=== PATIENT | male | born 1980 | race Caucasian/White ===

== ENCOUNTER 2018-08-29 00:38 | Inpatient (IN) | payer BC ==
[~2018-08-29] VITALS: Ht 175.3 cm; Wt 75.7 kg
--- NOTE | 2018-08-29 00:50 | NUR ---
PT PRESENTED TO THE ER WITH A C/O N/V X 2 DAYS. PT APPEARS PALE AND ANXIOUS. PT AMBULATED TO ER #4 WITH A SLOW STEADY GAIT. PT'S FRIEND IS AT THE BEDSIDE. PT WAS PLACED ON THE MONITOR AND CONTINUOUS PULSE OX. IV STARTED AND BLOOD WAS DRAWN.
[2018-08-29] MEDS ORDERED: ONDANSETRON HCL/PF 4 MG/2 ML VIAL ONE ×2 (00:56→01:34)
--- NOTE | 2018-08-29 00:57 | NUR ---
PT RETURNED FROM CT.
[2018-08-29 01:00] LABS: BASOPHILS # (AUTO) 0.1 /CMM (0.0-0.2); BASOPHILS % (AUTO) 0.3 % (0.0-2.0); HEMATOCRIT 52 % (39-51); HEMOGLOBIN 17.7 g/dL (13.5-17.5); LYMPHOCYTES # (AUTO) 2.1 /CMM (0.8-4.8); LYMPHOCYTES % (AUTO) 11.6 % (20.0-44.0); MEAN CORPUSCULAR HGB CONC 34 g/dl (31.0-36.0); MEAN CORPUSCULAR VOLUME 86 fL (80-96); MONOCYTES # (AUTO) 1.6 /CMM (0.1-1.30); NEUTROPHILS # (AUTO) 14.2 /CMM (1.8-8.9); NEUTROPHILS % (AUTO) 79.1 % (43.0-81.0); PLATELET COUNT (AUTO) 385 /CMM (150-450); WHITE BLOOD COUNT (AUTO) 17.9 K/uL (4.3-11.0)
[2018-08-29] MEDS ORDERED: ONDANSETRON HCL/PF 4 MG/2 ML VIAL IVP ONE (01:00)
[2018-08-29] MEDS ORDERED: IV NS 0.9% 1,000 ML BAG IV ONE (01:00)
[2018-08-29 01:16] LABS: ALBUMIN 4.9 g/dL (3.4-5.0); BILIRUBIN,DIRECT 0.1 mg/dL (0.0-0.2); BILIRUBIN,TOTAL 0.8 mg/dL (0.2-1.0); CALCIUM, SERUM 9.4 mg/dL (8.5-10.1); POTASSIUM 3.9 mmol/L (3.5-5.1); TOTAL PROTEIN, SERUM 9.4 g/dL (6.4-8.2)
[2018-08-29] MEDS ORDERED: LORAZEPAM INJ 2 MG/ML VIAL ONE (01:57)
[2018-08-29] MEDS ORDERED: LORAZEPAM INJ 2 MG/ML VIAL IV ONE (02:00)
[2018-08-29] MEDS ORDERED: ONDANSETRON HCL/PF 4 MG/2 ML VIAL IV ONE (02:00)
--- NOTE | 2018-08-29 02:05 | NUR ---
DARIANA MENARD, IS AT THE BEDSIDE.
--- NOTE | 2018-08-29 02:10 | NUR ---
REPORT GIVEN TO SARAH ANDINO
[2018-08-29 02:17] LABS: APPEARANCE,URINE CLEAR (CLEAR); BILIRUBIN,URINE 3+ (NEGATIVE); BLOOD, URINE TRACE-INTA Ery/uL (NEGATIVE); COLOR,URINE YELLOW (YELLOW); KETONES,URINE 2+ (NEGATIVE); LEUKOCYTE ESTERASE ,URINE NEGATIVE (NEGATIVE); NITRITE, URINE NEGATIVE (NEGATIVE); PROTEIN,URINE 1+ mg/dl (NEGATIVE); UGLUCOSE NEGATIVE (NEGATIVE); UROBILINOGEN,URINE 0.2 EU/dL (0.2)
[2018-08-29 02:22] LABS: BACTERIA,URINE Few /HPF (None Seen)
[2018-08-29 02:23] LABS: SQUAMOUS EPITHELIAL CELL,UR Few /HPF (None Seen)
--- NOTE | 2018-08-29 02:28 | NUR ---
US TECH IS FINISHED.
[2018-08-29] MEDS ORDERED: Z GUARD REMEDY 2 OZ OINT TP PRN (02:30)
[2018-08-29] MEDS ORDERED: ACETAMINOPHEN 325 MG TABLET PO PRN (02:30)
[2018-08-29] MEDS ORDERED: MAG HYDROX/AL HYDROX/SIMETH 30 ML UDC PO PRN (02:30)
[2018-08-29] MEDS ORDERED: MORPHINE SULFATE INJ 2 MG/ML DISP.SYRIN IV PRN (02:30)
[2018-08-29] MEDS ORDERED: MAGNESIUM HYDROXIDE 30 ML UDC PO PRN (02:30)
[2018-08-29] MEDS ORDERED: HYDROCODONE/APAP 5/325MG 1 EACH TABLET PO PRN (02:30)
[2018-08-29] MEDS ORDERED: ONDANSETRON HCL/PF 4 MG/2 ML VIAL IVP PRN (02:30)
--- NOTE | 2018-08-29 02:35 | NUR ---
PT IS GOING TO [facility] .
[2018-08-29 02:45] VITALS: BP 129/71
--- NOTE | 2018-08-29 02:45 | NUR ---
MS/RN NOTE RECEIVED NEW ADMITTED PATIENT IS A 38 YEEAR OLD MALE WHO WAS ADMITTED FROM ER DUE TO N/V FOR 3 DAYS WITH HICUPS. US ULTRASOUND DX WITH PANCREATITIS, ALERT, ORIENTED ABLE TO VERBALIZE NEEDS, CALM AND COOPERATIVE TO CARE, ON NPO, LAST BM 2DAYS AGO, LEFT AC GAUGE 20 PATENT, BELONGINGS CHECK AND RECONCILED, ON IV HYDRATION AT 150 ML/HR. ROOM ORIENTATION PROVIDED, WILL MONITOR, NO HOME MEDICATION AND WITH STRICT I/O.
--- NOTE | 2018-08-29 02:46 | NUR ---
SKIN ASSESSMENT DONE . SKIN INTACT.
[2018-08-29] MEDS: IV NS 0.9% 1,000 ML IV PRN ×4 (03:05→23:11)
[2018-08-29 03:08] VITALS: BP 129/71
--- NOTE | 2018-08-29 06:27 | NUR ---
315-2 MS/RN NOTES PATIENT ABLE TO SLEEP DURING THE NIGHT, ALERT, ORIENTED, VERBALIZE PAIN COMES AND GOES WITH HICCUPS, NO PAIN MEDICATION REQUESTED, ABLE TO TOLERATE, NOP STATUS. IV HYDRATION RUNNING AT 150ML/HR HELP.SKIN WARM TO TOUCH. RESPIRATIONS EVEN AND UNLABORED. BED LOCKED, CALL LIGHTS WITHIN REACH. WILL MONITOR.
[2018-08-29 06:40] LABS: BASOPHILS % (AUTO) 0.1 % (0.0-2.0); HEMATOCRIT 49 % (39-51); HEMOGLOBIN 16.1 g/dL (13.5-17.5); LYMPHOCYTES % (AUTO) 13.8 % (20.0-44.0); MEAN CORPUSCULAR HGB CONC 33 g/dl (31.0-36.0); MEAN CORPUSCULAR VOLUME 87 fL (80-96); MONOCYTES # (AUTO) 1.5 /CMM (0.1-1.30); MONOCYTES % (AUTO) 10.1 % (2.0-12.0); NEUTROPHILS # (AUTO) 11.2 /CMM (1.8-8.9); PLATELET COUNT (AUTO) 326 /CMM (150-450); RED BLOOD CELL COUNT(AUTO) 5.61 MIL/uL (4.5-6.0); WHITE BLOOD COUNT (AUTO) 14.8 K/uL (4.3-11.0)
[2018-08-29 06:59] LABS: ALBUMIN 4.1 g/dL (3.4-5.0); BILIRUBIN,TOTAL 0.8 mg/dL (0.2-1.0); CALCIUM, SERUM 8.5 mg/dL (8.5-10.1); CREATININE 2.2 mg/dL (0.6-1.3); MAGNESIUM 2.2 mg/dL (1.8-2.4); PHOSPHORUS 4.4 mg/dL (2.5-4.9); POTASSIUM 4.1 mmol/L (3.5-5.1); TOTAL PROTEIN, SERUM 8.1 g/dL (6.4-8.2)
[2018-08-29 07:09] LABS: THYROID STIMULATING HORMONE 1.312 uIU/mL (0.358-3.74)
--- NOTE | 2018-08-29 07:30 | NUR ---
MS RN OPENING NOTES PT ALERT, ORIENTED X4. , NO PAIN AT THIS TIME. NPO STATUS. IV HYDRATION RUNNING AT 150ML/HR SKIN WARM TO TOUCH. RESPIRATIONS EVEN AND UNLABORED. BED LOCKED, CALL LIGHTS WITHIN REACH. WILL CONTINUE TO MONITOR
[2018-08-29 08:00] VITALS: BP 133/82
[2018-08-29] MEDS: PANTOPRAZOLE 40 MG VIAL IV SCH (08:57)
[2018-08-29 12:26] LABS: CREATININE, URINE 223.7 MG/DL (30.0-125.0); URINE TOTAL PROTEIN 91.9 mg/dL (0-11.9)
[2018-08-29 16:00] VITALS: BP 126/72
--- NOTE | 2018-08-29 18:34 | NUR ---
MS RN CLOSING NOTES PT ALERT, ORIENTED X4.DIET ADVANCED TO CLEAR LIQUID, PT TOLERATED WELL. NO N/V OR DIARRHEA NOTED.IV HYDRATION RUNNING AT 150ML/HR .SKIN WARM TO TOUCH. RESPIRATIONS EVEN AND UNLABORED. BED LOCKED, CALL LIGHTS WITHIN REACH.WILL ENDORSE TO NEXT SHIFT
[2018-08-29 20:00] VITALS: BP 120/64
--- NOTE | 2018-08-29 20:20 | NUR ---
MS/RN OPENING NOTES RECEIVED PATIENT IN BED, AWAKE, RESTING COMFORTABLY IN BED, DENIES PAIN, ABLE TO TOLERATE LIQUID DIET, RESPIRATIONS EVEN AND UNLABORED, REPORTED FEEL MUCH BETTER, REVIEWED PLAN OF CARE, WILL CONTINUE TO MONITOR. WILL MONITOR, CALL LIGHTS WITHIN REACH, BED LOCKED WILL MONITOR.
[2018-08-30] MEDS: IV NS 0.9% 1,000 ML IV PRN (05:59)
--- NOTE | 2018-08-30 06:14 | NUR ---
MS SARAH NOTES PATIENT SELF CARE AND TOOK A SHOWER, REQUESTED TO HAVE DOUBLE PORTION IN HIS MEAL PLAN INFORM MED DOLAN, ALSO REQUESTING TO SMOKE Addendum: 08/30/18 at 0616 by CHARLENE MAYORGA RN PLS DISREGARD FOR ANOTHER PATIENT INFO
[2018-08-30 06:27] LABS: BASOPHILS % (AUTO) 0.4 % (0.0-2.0); EOSINOPHILS % (AUTO) 0.7 % (0.0-6.0); HEMATOCRIT 44 % (39-51); HEMOGLOBIN 14.6 g/dL (13.5-17.5); LYMPHOCYTES # (AUTO) 2.2 /CMM (0.8-4.8); MEAN CORPUSCULAR HGB CONC 34 g/dl (31.0-36.0); MEAN CORPUSCULAR VOLUME 87 fL (80-96); MONOCYTES # (AUTO) 1.1 /CMM (0.1-1.30); MONOCYTES % (AUTO) 10.7 % (2.0-12.0); NEUTROPHILS # (AUTO) 6.6 /CMM (1.8-8.9); NEUTROPHILS % (AUTO) 66.2 % (43.0-81.0); PLATELET COUNT (AUTO) 273 /CMM (150-450); RED BLOOD CELL COUNT(AUTO) 5.01 MIL/uL (4.5-6.0); WHITE BLOOD COUNT (AUTO) 10.1 K/uL (4.3-11.0)
--- NOTE | 2018-08-30 06:29 | NUR ---
MS/RN NOTES DISCUSSED PATIENT ABOUT DIET ORDER TO ADVANCE TOLERATED TO SOFT DIET, WITH NO BOWEL MOVEMENT FOR THE PAST 3 DAYS, INFORMED NEEDED MILK OF MAGNESIA, REFUSE TO TAKE IT AT THIS TIME BUT WILL HAVE SOME FOOD SO MAY HAVE BM.
--- NOTE | 2018-08-30 06:33 | NUR ---
315-2 MS/RN NOTES PATIENT ALERT, ORIENTED, IN BED, WITH IMPROVED CONDITION. DISCUSSED DIET TOLERATED, AND PLAN OF CARE, DENIES PAIN. SLEPT GOOD. CALL LIGHTS WITHIN REACH, BED LOCKED, WILL MONITOR.WILL ENDORSE TO AM RN FOR BEKAH.
[2018-08-30 06:41] LABS: ALBUMIN 3.3 g/dL (3.4-5.0); BILIRUBIN,TOTAL 1.1 mg/dL (0.2-1.0); CALCIUM, SERUM 8.3 mg/dL (8.5-10.1); CREATININE 1.1 mg/dL (0.6-1.3); POTASSIUM 3.8 mmol/L (3.5-5.1); TOTAL PROTEIN, SERUM 6.5 g/dL (6.4-8.2)
--- NOTE | 2018-08-30 07:30 | NUR ---
RN OPENING NOTES RECEIVED PT. PT STABLE AND RESTING IN BED. A/OX3. NO S/S OF RESP DISTRESS/SOB. NO C/O PAIN AT THIS TIME. PER AM LABS, LIPASE TREND DOWNWARDS NOW WNL. PT DIET ADVANCED FROM CLEAR LIQUIDS TO SOFT, ABLE TO TOLERATE. SAFETY MEASURES IN PLACE, CALL LIGHT WITHIN REACH. WILL CONTINUE TO MONITOR.
[2018-08-30 08:00] VITALS: BP 122/63
[2018-08-30] MEDS: PANTOPRAZOLE 40 MG VIAL IV SCH (09:03)
[2018-08-30] MEDS ORDERED: K PHOS NEUTRAL 250 MG TABLET PO ONE (12:30)
--- NOTE | 2018-08-30 15:51 | NUR ---
DISCHARGE NOTE PT DISCHARGED HOME. PT STABLE. NO C/O PAIN. DC TEACHING PERFORMED. PT VERBALIZES UNDERSTANDING OF TEACHING. MRCP SCAN RESULTS FOUND MOST UNREMARKABLE, REPORT GIVEN TO PT. ID AND IV ACCESS REMOVED. DC INSTRUCTIONS AND BELONGINGS SHEETS SIGNED, COPIED AND PLACED IN CHART. PT LEFT HOSPITAL IN PRIVATE VEHICLE WITH FRIEND.
[2018-08-31 08:11] LABS: *SPE A/G RATIO 1.4 (0.7-1.7); *SPE ALBUMIN 3.6 g/dL (2.9-4.4); *SPE ALPHA-1-GLOBULIN 0.2 g/dL (0.0-0.4); *SPE ALPHA-2-GLOBULIN 0.5 g/dL (0.4-1.0); *SPE BETA GLOBULIN 1.1 g/dL (0.7-1.3); *SPE GLOBULIN, TOTAL 2.6 g/dL (2.2-3.9); *SPE M-SPIKE Not Observed g/dL (Not Observed); *SPEGAMMA GLOBULIN 0.9 g/dL (0.4-1.8)
[2018-08-31 12:09] LABS: PTH, INTACT 22 pg/mL (15-65)
== END 2018-08-30 15:40 | disposition home or self-care (01) | DRG 438 ==
LOC: ER 00:39 → MED 01:49
PROVIDERS: ADMIT Nurse Practitioner Acute Care; ATTEND Nurse Practitioner Acute Care
DX: K85.90 Acute pancreatitis without necrosis or infection, unspecified (principal); N17.0 Acute kidney failure with tubular necrosis; E87.2 Acidosis; E87.1 Hypo-osmolality and hyponatremia; K80.20 Calculus of gallbladder without cholecystitis without obstruction; Z87.891 Personal history of nicotine dependence; D72.829 Elevated white blood cell count, unspecified; E87.8 Other disorders of electrolyte and fluid balance, not elsewhere classified; A08.4 Viral intestinal infection, unspecified
CPT/HCPCS: 36415; 74181-TC; 76705-TC; 76770-TC; 80048-TC; 80053-TC; 80061-TC; 80076-TC; 81000-TC; 82550-TC; 82570-TC; 83690-TC; 83735-TC; 83970; 84100-TC; 84155; 84155-TC; 84165; 84300-TC; 84443-TC; 85025-TC; 87081-TC; A4606; C9113; G0378; J2060; J2405; J7030; Z7610

== ENCOUNTER 2018-11-06 12:18 | Emergency (ER) | payer BC ==
[~2018-11-06] VITALS: Ht 170.2 cm; Wt 70.3 kg
--- NOTE | 2018-11-06 12:29 | NUR ---
patient presented to the ER c/o nausea and vominting x 10 since this morning. On room air, breathing evenly and unlabroed. kept comfortable. awaiting for MD for eval. Will continue to monitor accordingly.
--- NOTE | 2018-11-06 12:38 | NUR ---
LABS DRAWNED AND SENT TO LAB.
[2018-11-06] MEDS ORDERED: ONDANSETRON HCL/PF 4 MG/2 ML VIAL ONE (12:49)
--- NOTE | 2018-11-06 12:56 | NUR ---
SEEN AND EXAMINED BY MS. ISSAC RIVAS.
[2018-11-06 12:57] LABS: BASOPHILS # (AUTO) 0.1 /CMM (0.0-0.2); EOSINOPHILS % (AUTO) 0.3 % (0.0-6.0); LYMPHOCYTES # (AUTO) 2.3 /CMM (0.8-4.8); NEUTROPHILS % (AUTO) 82.6 % (43.0-81.0)
[2018-11-06 13:00] LABS: BASOPHILS % (AUTO) 0.3 % (0.0-2.0); HEMATOCRIT 55 % (39-51); HEMOGLOBIN 18.4 g/dL (13.5-17.5); MEAN CORPUSCULAR HGB CONC 33 g/dl (31.0-36.0); MEAN CORPUSCULAR VOLUME 89 fL (80-96); MONOCYTES # (AUTO) 0.5 /CMM (0.1-1.30); MONOCYTES % (AUTO) 2.8 % (2.0-12.0); NEUTROPHILS # (AUTO) 13.6 /CMM (1.8-8.9); PLATELET COUNT (AUTO) 331 /CMM (150-450); RED BLOOD CELL COUNT(AUTO) 6.23 MIL/uL (4.5-6.0); WHITE BLOOD COUNT (AUTO) 16.5 K/uL (4.3-11.0)
[2018-11-06] MEDS ORDERED: MORPHINE SULFATE INJ 2 MG/ML DISP.SYRIN IV ONE (13:00)
[2018-11-06] MEDS ORDERED: ONDANSETRON HCL/PF 4 MG/2 ML VIAL IV ONE (13:00)
[2018-11-06] MEDS ORDERED: IV NS 0.9% 1,000 ML BAG IV ONE (13:00)
[2018-11-06 13:04] LABS: CALCIUM, SERUM 10.1 mg/dL (8.5-10.1); CREATININE 1.3 mg/dL (0.6-1.3); POTASSIUM 3.8 mmol/L (3.5-5.1)
[2018-11-06] MEDS ORDERED: MORPHINE SULFATE INJ 4 MG/ML DISP.SYRIN ONE (13:05)
[2018-11-06 13:10] LABS: ALBUMIN 4.8 g/dL (3.4-5.0); BILIRUBIN,DIRECT 0.1 mg/dL (0.0-0.2); BILIRUBIN,TOTAL 0.6 mg/dL (0.2-1.0); TOTAL PROTEIN, SERUM 8.7 g/dL (6.4-8.2)
[2018-11-06 14:52] LABS: APPEARANCE,URINE Clear (CLEAR); BILIRUBIN,URINE Negative (NEGATIVE); BLOOD, URINE Negative Ery/uL (NEGATIVE); COLOR,URINE Yellow (YELLOW); KETONES,URINE 40 (NEGATIVE); LEUKOCYTE ESTERASE ,URINE Negative (NEGATIVE); NITRITE, URINE Negative (NEGATIVE); PROTEIN,URINE Negative (NEGATIVE); UGLUCOSE Negative (NEGATIVE); UROBILINOGEN,URINE 0.2 EU/dL (0.2)
[2018-11-06 14:54] LABS: BACTERIA,URINE Rare /HPF (None Seen); RBC,URINE 0-2 /HPF (0-2); SQUAMOUS EPITHELIAL CELL,UR Rare /HPF (None Seen); WBC,URINE 0-2 /HPF (0-3)
[2018-11-06 15:08] VITALS: BP 123/60
--- NOTE | 2018-11-06 15:08 | NUR ---
IV removed. Catheter intact and site benign. Pressure and 4x4 applied to site. No bleeding noted.Patient discharged to home in stable condition. Written and verbal after care instructions given. Patient verbalizes understanding of instruction.
[2018-11-06 16:58] LABS: NEUTROPHILS % (MANUAL) 82 (42-76)
[2018-11-06 16:59] LABS: BAND % (MANUAL) 1 % (0.0-5.0); LYMPHOCYTES % (MANUAL) 13 % (16-48)
[2018-11-06 17:01] LABS: MONOCYTES % (MANUAL) 4 % (0-11.0)
== END 2018-11-06 15:10 | disposition home or self-care (01) ==
LOC: ER 12:18
DX: R11.2 Nausea with vomiting, unspecified (principal); R19.7 Diarrhea, unspecified; R10.84 Generalized abdominal pain; Z87.891 Personal history of nicotine dependence
CPT/HCPCS: 36415; 80048-TC; 80076-TC; 81000-TC; 83690-TC; 85025-TC; J2270; J2405; J7030